=== PATIENT | male | born 1990 | race Caucasian/White ===

== ENCOUNTER 2017-01-31 11:03 | Emergency (ER) | payer OTHER ==
[~2017-01-31 11:03] MED LIST: ?ANTIBIOTIC; ACULAR10 ML; ACULAR10 ML OS; AMOXICILLIN PO; BACTRIM DS TABL1 TA1 PO; BENADRYL PO; BENZONATATE PO; CIPRO PO; E MYCIN; FLEXERIL PO; FLEXERIL10 MG PO; IBUPROFEN800 MG PO; KEFLEX500 MG PO; KETOPROFEN PO; LORTAB 10-5001 EACH PO; LORTAB 5/500 TA1 TA1 PO; LORTAB 7.5-5001 TAB; NO MEDICATIONS; ORUDIS75 M1 DOB; PHENERGAN VC W120 M1 PO; PHENERGAN25 M1 PO; PREDNISONE PO; PREDNISONE10 MG PO; ULTRAM PO; VIBRAMYCIN100 M1 PO; VOLTAREN75 MG PO
== END 2017-01-31 13:04 | disposition home or self-care (01) ==
LOC: SED 11:03
DX: T63.461A Toxic effect of venom of wasps, accidental (unintentional), initial encounter (principal); L50.0 Allergic urticaria; J45.909 Unspecified asthma, uncomplicated; F17.210 Nicotine dependence, cigarettes, uncomplicated
CPT/HCPCS: 94640; 96374; 99284; J2930